=== PATIENT | male | born 1980 | race Caucasian/White ===

== ENCOUNTER 2019-08-02 21:09 | Inpatient (IN) | payer OTHER ==
[~2019-08-02] VITALS: Ht 177.8 cm; Wt 126.9 kg
--- NOTE | 2019-08-02 21:28 | NUR ---
[facility] c/o sharp pain in the back from scapula to scapula. Patient states he took a nap earlier and when he woke up he experienced sudden chest pain which radiated to his back. He took ibuprofen and it went away. Later he was working in the yard and it came on again suddenly but more in the back from scapula to scapula. He does not have any medical history and this has never happened before. He denies nausea, sweating, dizziness, numbness, or tingling. [facility], [facility] performed [facility] which [facility] 0.08 and the repeat trop was increased. Patient is in NAD. Respirations even and unlabored.
--- NOTE | 2019-08-02 22:23 | NUR ---
Patient in CT
[2019-08-02] MEDS ORDERED: OMNIPAQUE 350 MG/ML, 100ML BOTTLE ONE (22:32)
--- NOTE | 2019-08-02 23:24 | NUR ---
pt stated still having pain at chest and shoulder intermittently vss stable waiting for 2nd trop now
[2019-08-02 23:28] LABS: TROPONIN I 0.454 ng/mL (0.000-0.045)
[2019-08-02] MEDS ORDERED: HEPARIN 5,000 UNITS/ML, 1ML IV ONE (23:45)
[2019-08-02] MEDS ORDERED: HEPARIN 25,000 UNITS/500ML PMX 500 ML IV PRN (23:45)
[2019-08-02] MEDS: SODIUM CHLORIDE 0.9% 1,000 ML IV SCH (23:48)
--- NOTE | 2019-08-02 23:50 | NUR ---
Critical lab value 0.454
--- NOTE | 2019-08-02 23:59 | NUR ---
Report given to CARLO Mims. Patient to be transferred to room 522-1. Heparin order received. No Anti-Xa labs drawn; labs ordered. Notified CARLO Mims.
[2019-08-03] MEDS ORDERED: morphine SULFATE 10 MG/ML, 1ML IVPush PRN
[2019-08-03] MEDS ORDERED: BISACODYL 10 MG SUPP PR PRN
[2019-08-03] MEDS ORDERED: DOCUSATE 100 MG CAPSULE PO PRN
[2019-08-03] MEDS ORDERED: POLYETHYLENE GLYCOL 17 GM PACKET PO PRN
[2019-08-03] MEDS ORDERED: PROMETHAZINE 25 MG/ML, 1ML IM PRN
[2019-08-03] MEDS ORDERED: OXYcodone IR 5MG TABLET PO PRN
[2019-08-03] MEDS ORDERED: NITROGLYCERIN 0.4 MG BOTTLE (25 TABS) SL PRN
[2019-08-03] MEDS ORDERED: hydrALAzine 20 MG/ML, 1ML IVPush PRN
[2019-08-03] MEDS ORDERED: ONDANSETRON 2MG/ML, 2ML IVPush PRN
[2019-08-03] MEDS ORDERED: ONDANSETRON ODT 4 MG PO PRN
[2019-08-03 00:30] VITALS: BP 133/89
[2019-08-03 00:33] LABS: FREE T4 (FREE THYROXINE) 1.06 ng/dL (0.76-1.46)
[2019-08-03] MEDS: PLEASE ENTER ALLERGIES MC SCH ×7 (01:00→07:00)
[2019-08-03] MEDS ORDERED: ZOLPIDEM 5MG TABLET PO PRN (01:30)
[2019-08-03] MEDS: HEPARIN 25,000 UNITS/500ML PMX 500 ML IV PRN ×2 (01:52→20:38)
[2019-08-03] MEDS ORDERED: HEPARIN 5,000 UNITS/ML, 1ML IV ONE (02:00)
[2019-08-03 02:39] VITALS: BP 133/89
[2019-08-03 03:43] LABS: BASOPHILS # (AUTO) 0.08 x10^3/uL (0-0.1); BASOPHILS % (AUTO) 1 % (0-1); EOSINOPHILS # (AUTO) 0.15 x10^3/uL (0-0.4); EOSINOPHILS % (AUTO) 1 % (1-7); LYMPHOCYTES # (AUTO) 2.69 x10^3/uL (1-3.4); LYMPHOCYTES % (AUTO) 25 % (22-44); MD NO; MEAN CORPUSCULAR HEMOGLOBIN 31.7 pg (27.5-34.5); MEAN CORPUSCULAR HGB CONC 33.9 g/dL (33.2-36.2); MEAN CORPUSCULAR VOLUME 93.3 fL (81-97); MEAN PLATELET VOLUME 7.8 fL (7.4-10.4); MONOCYTES # (AUTO) 0.76 x10^3/uL (0.2-0.8); MONOCYTES % (AUTO) 7 % (2-9); NEUTROPHILS % (AUTO) 66 % (42-75); PLATELET COUNT 211 x10^3/uL (130-400); RED BLOOD COUNT 5.16 x10^6/uL (4.38-5.82); RED CELL DISTRIBUTION WIDTH 13.4 % (9.4-14.8)
[2019-08-03 03:51] LABS: ALANINE AMINOTRANSFERASE 33 U/L (12-78); ALBUMIN 3.3 g/dL (3.4-5.0); ANION GAP 6 mmol/L (5-15); CALCIUM 8.6 mg/dL (8.5-10.1); CHLORIDE 110 mmol/L (98-107); CHOLESTEROL, TOTAL 202 mg/dL (140-239); CREATININE 0.59 mg/dL (0.7-1.3)
[2019-08-03 03:56] LABS: ALKALINE PHOSPHATASE 67 U/L (45-117); BILIRUBIN,TOTAL 0.4 mg/dL (0.2-1.0); CHOL/HDL RATIO 5.9; HDL CHOL % 17 % (26-37); HDL CHOLESTEROL (DIRECT) 34 mg/dL (40-60); LDL CHOLESTEROL,CALCULATED 159 mg/dL (54-169); LDL/HDL RATIO 4.7 (0.5-3.0); TOTAL PROTEIN 7.2 g/dL (6.4-8.2); TRIGLYCERIDES 44 mg/dL (50-200); TROPONIN I 0.408 ng/mL (0.000-0.045); VLDL CHOLESTEROL 9 mg/dL (0-25)
[2019-08-03] MEDS: ASPIRIN 325 MG TABLET EC PO SCH (06:23)
[2019-08-03 07:27] LABS: TROPONIN I 0.235 ng/mL (0.000-0.045)
[2019-08-03 07:47] VITALS: BP 136/88
[2019-08-03] MEDS: HEPARIN 5,000 UNITS/ML, 1ML IV PRN ×3 (07:49→22:02)
[2019-08-03] MEDS: SODIUM CHLORIDE 0.9% 1,000 ML IV SCH (11:14)
[2019-08-03 13:44] VITALS: BP 132/85
[2019-08-03] MEDS ORDERED: DIPHENHYDRAMINE 50 MG CAPSULE PO PRN (14:00)
[2019-08-03 20:02] VITALS: BP 144/79
[2019-08-04 01:24] VITALS: BP 127/85
[2019-08-04 02:07] LABS: BASOPHILS # (AUTO) 0.09 x10^3/uL (0-0.1); BASOPHILS % (AUTO) 1 % (0-1); EOSINOPHILS # (AUTO) 0.13 x10^3/uL (0-0.4); EOSINOPHILS % (AUTO) 1 % (1-7); LYMPHOCYTES # (AUTO) 3.22 x10^3/uL (1-3.4); LYMPHOCYTES % (AUTO) 31 % (22-44); MD NO; MEAN CORPUSCULAR HEMOGLOBIN 31.2 pg (27.5-34.5); MEAN CORPUSCULAR HGB CONC 33.5 g/dL (33.2-36.2); MEAN CORPUSCULAR VOLUME 93.1 fL (81-97); MEAN PLATELET VOLUME 7.7 fL (7.4-10.4); MONOCYTES # (AUTO) 0.63 x10^3/uL (0.2-0.8); MONOCYTES % (AUTO) 6 % (2-9); NEUTROPHILS # (AUTO) 6.27 x10^3/uL (1.8-6.8); NEUTROPHILS % (AUTO) 61 % (42-75); PLATELET COUNT 203 x10^3/uL (130-400); RED BLOOD COUNT 5.16 x10^6/uL (4.38-5.82); RED CELL DISTRIBUTION WIDTH 13.6 % (9.4-14.8)
[2019-08-04 02:15] LABS: ALANINE AMINOTRANSFERASE 32 U/L (12-78); ALBUMIN 3.2 g/dL (3.4-5.0); ANION GAP 5 mmol/L (5-15); CALCIUM 8.9 mg/dL (8.5-10.1); CHLORIDE 110 mmol/L (98-107)
[2019-08-04 02:21] LABS: ALKALINE PHOSPHATASE 66 U/L (45-117); BILIRUBIN,TOTAL 0.7 mg/dL (0.2-1.0); CREATININE 0.62 mg/dL (0.7-1.3); TROPONIN I 0.146 ng/mL (0.000-0.045)
[2019-08-04] MEDS: ASPIRIN 325 MG TABLET EC PO SCH (06:04)
[2019-08-04 07:56] VITALS: BP 137/84
[2019-08-04] MEDS ORDERED: SODIUM CHLORIDE 0.9% 1,000 ML IV SCH ×2 (10:30→14:51)
[2019-08-04] MEDS ORDERED: VERAPAMIL 2.5 MG/ML, 2ML ONE (12:22)
[2019-08-04] MEDS ORDERED: BIVALIRUDIN 250 MG ONE ×2 (12:22→13:58)
[2019-08-04] MEDS ORDERED: LIDOCAINE-MPF 1%, 5ML ONE (12:22)
[2019-08-04] MEDS ORDERED: HEPARIN 1,000 UNITS/ML, 10ML ONE (12:22)
[2019-08-04] MEDS ORDERED: FENTANYL PF 100 MCG/2ML ONE ×2 (12:22→13:13)
[2019-08-04] MEDS ORDERED: PRASUGREL 10 MG TABLET ONE (12:22)
[2019-08-04] MEDS ORDERED: MIDAZOLAM 1 MG/ML, 5ML ONE (12:22)
[2019-08-04] MEDS ORDERED: DIPHENHYDRAMINE 50 MG/ML, 1ML ONE (13:08)
[2019-08-04] MEDS ORDERED: LIDOCAINE 2%, 20ML ONE (13:12)
[2019-08-04] MEDS ORDERED: MIDAZOLAM 1 MG/ML, 2ML ONE (13:12)
[2019-08-04 14:02] VITALS: BP 143/84
[2019-08-04] MEDS ORDERED: BIVALIRUDIN 250 MG in SODIUM CHLORIDE 0.9% 50 ML IV SCH (14:51)
[2019-08-04] MEDS: ACETAMINOPHEN 325 MG TABLET PO PRN (16:58)
[2019-08-04 17:05] VITALS: BP 152/112
[2019-08-04 20:12] VITALS: BP 142/83
[2019-08-04] MEDS ORDERED: ATORVASTATIN 80 MG TABLET PO SCH (21:00)
[2019-08-05] MEDS: ACETAMINOPHEN 325 MG TABLET PO PRN ×2 (01:01→09:23)
[2019-08-05 01:24] VITALS: BP 151/88
[2019-08-05 05:58] LABS: ALBUMIN 3.2 g/dL (3.4-5.0); ANION GAP 7 mmol/L (5-15); CALCIUM 8.4 mg/dL (8.5-10.1); CHLORIDE 108 mmol/L (98-107); CREATININE 0.77 mg/dL (0.7-1.3)
[2019-08-05 07:57] VITALS: BP 134/86
[2019-08-05] MEDS ORDERED: PRASUGREL 10 MG TABLET PO SCH (09:00)
[2019-08-05] MEDS: ASPIRIN 325 MG TABLET EC PO SCH (09:22)
[2019-08-05] MEDS ORDERED: HYDROCHLOROTHIAZIDE 12.5 MG CAPSULE PO SCH (09:30)
[2019-08-05] MEDS ORDERED: LISINOPRIL 10 MG TABLET PO SCH (09:30)
[2019-08-05] MEDS ORDERED: PRAS10TA4 PO (10:26)
[2019-08-05] MEDS ORDERED: ACET325T26 PO (10:26)
[2019-08-05] MEDS ORDERED: HYDR12.517 PO (10:26)
[2019-08-05] MEDS ORDERED: LISI-167 PO (10:26)
[2019-08-05] MEDS ORDERED: ATOR-2 PO (10:26)
[2019-08-05] MEDS ORDERED: ASPI81TA45 PO (10:26)
== END 2019-08-05 12:35 | disposition home or self-care (01) | DRG 246 ==
LOC: ED 21:31 → EDIP 23:26 → 5SO 08-03 00:23 → DCLOUNGE 08-05 12:17
PROVIDERS: ADMIT Internal Medicine; ATTEND Hospitalist
PROC: 4A023N7 Measurement of Cardiac Sampling and Pressure, Left Heart, Percutaneous Approach (ICD-10-PCS; principal; 2019-08-04)
PROC: 027034Z Dilation of Coronary Artery, One Artery with Drug-eluting Intraluminal Device, Percutaneous Approach (ICD-10-PCS; 2019-08-04)
PROC: B2111ZZ Fluoroscopy of Multiple Coronary Arteries using Low Osmolar Contrast (ICD-10-PCS; 2019-08-04)
PROC: B2151ZZ Fluoroscopy of Left Heart using Low Osmolar Contrast (ICD-10-PCS; 2019-08-04)
DX: I21.4 Non-ST elevation (NSTEMI) myocardial infarction (principal); I50.33 Acute on chronic diastolic (congestive) heart failure; Z68.41 Body mass index [BMI] 40.0-44.9, adult; I25.110 Atherosclerotic heart disease of native coronary artery with unstable angina pectoris; E78.00 Pure hypercholesterolemia, unspecified; E78.5 Hyperlipidemia, unspecified; E66.01 Morbid (severe) obesity due to excess calories; Z71.3 Dietary counseling and surveillance; Z87.891 Personal history of nicotine dependence; M76.61 Achilles tendinitis, right leg; Z82.49 Family history of ischemic heart disease and other diseases of the circulatory system; I11.0 Hypertensive heart disease with heart failure
CPT/HCPCS: 36415; 93458; 99285; C9600; J3490; 71275; 80048; 80053; 80061; 82040; 83036; 83735; 84100; 84439; 84443; 84484; 85025; 85520; 93005; 93306; 93356; 99156; 99157; C1760; C1769; C1894; G0378; J0583; J1644; J2250; J3010; Q9967; C1725; C1874; C1887; J0360; J1200; J7030; Q0177

== ENCOUNTER 2019-08-05 21:02 | Emergency (ER) | payer OTHER ==
[~2019-08-05] VITALS: Ht 177.8 cm; Wt 124.4 kg
[~2019-08-05 21:02] MED LIST: ACET325T26 PO; ASPI81TA45 PO; ATOR-2 PO; HYDR12.517 PO; LISI-167 PO; PRAS10TA4 PO
[2019-08-05 22:52] LABS: BASOPHILS # (AUTO) 0.02 x10^3/uL (0-0.1); BASOPHILS % (AUTO) 0 % (0-1); EOSINOPHILS # (AUTO) 0.12 x10^3/uL (0-0.4); EOSINOPHILS % (AUTO) 1 % (1-7); LYMPHOCYTES # (AUTO) 2.25 x10^3/uL (1-3.4); LYMPHOCYTES % (AUTO) 19 % (22-44); MD NO; MEAN CORPUSCULAR HEMOGLOBIN 31.2 pg (27.5-34.5); MEAN CORPUSCULAR HGB CONC 33.6 g/dL (33.2-36.2); MEAN CORPUSCULAR VOLUME 93.1 fL (81-97); MEAN PLATELET VOLUME 7.6 fL (7.4-10.4); MONOCYTES # (AUTO) 0.85 x10^3/uL (0.2-0.8); MONOCYTES % (AUTO) 7 % (2-9); NEUTROPHILS # (AUTO) 8.92 x10^3/uL (1.8-6.8); NEUTROPHILS % (AUTO) 73 % (42-75); PLATELET COUNT 215 x10^3/uL (130-400); RED BLOOD COUNT 5.33 x10^6/uL (4.38-5.82); RED CELL DISTRIBUTION WIDTH 13.6 % (9.4-14.8)
[2019-08-05 23:01] LABS: INTERNATIONAL NORMALIZED RATIO 1.07 (0.93-1.1); PROTHROMBIN TIME 11.2 Seconds (9.6-11.5)
[2019-08-05 23:02] LABS: ALANINE AMINOTRANSFERASE 33 U/L (12-78); ALBUMIN 3.6 g/dL (3.4-5.0); ANION GAP 7 mmol/L (5-15); CALCIUM 9.3 mg/dL (8.5-10.1); CHLORIDE 108 mmol/L (98-107); CREATININE 0.68 mg/dL (0.7-1.3)
[2019-08-05 23:05] LABS: ALKALINE PHOSPHATASE 71 U/L (45-117); TOTAL PROTEIN 7.7 g/dL (6.4-8.2)
--- NOTE | 2019-08-05 23:39 | NUR ---
BREAK RN: ASSUMED CARE FOR DISCHARGE ONLY Patient/Caregiver given discharge instructions and they have confirmed that they understand the instructions. Patient ambulatory with steady gait.
[2019-08-05 23:40] VITALS: BP 130/65
== END 2019-08-05 23:42 | disposition home or self-care (01) ==
LOC: ED 22:27
DX: T78.49XA Other allergy, initial encounter (principal); R21 Rash and other nonspecific skin eruption; E78.5 Hyperlipidemia, unspecified; E78.00 Pure hypercholesterolemia, unspecified; X58.XXXA Exposure to other specified factors, initial encounter
CPT/HCPCS: 36415; 80053; 85025; 85610; 85730; 99283